=== PATIENT | female | born 1960 | race Native Hawaiian/Other Pacific Islander ===

== ENCOUNTER → 2017-07-18 | Outpatient (CLI) | payer SELFPAY ==
[2017-07-18 10:43] LABS: HCT 42.8 % (34.0-46.0); HGB 15.1 gm/dL (11.4-16.0); MCH 29.2 pg (25.0-35.0); MCHC 35.2 g/dL (31.0-37.0); Mean Platelet Volume 7.7; Platelet Count 221 k/uL (150-450); RBC 5.15 m/uL (3.80-5.40); RDW 12.6 % (11.5-15.5)
[2017-07-18 11:02] LABS: ALT 36 U/L (9-52); AST 31 U/L (14-36); Albumin 4.2 g/dL (3.5-5.0); Alkaline Phosphatase 140 U/L (38-126); Anion Gap 13 mmol/L; Blood Urea Nitrogen 16 mg/dL (7-17); Calcium 9.6 mg/dL (8.4-10.2); Carbon Dioxide 28 mmol/L (22-30); Chloride 103 mmol/L (98-107); Cholesterol 227 mg/dL (<200); Glucose 127 mg/dL (74-99); HDL Cholesterol 45 mg/dL (40-60); LDL Cholesterol,Calculated 110 mg/dL (0-99); Potassium 4.3 mmol/L (3.5-5.1); Sodium 144 mmol/L (137-145); Total Bilirubin 0.5 mg/dL (0.2-1.3); Total Protein 7.4 g/dL (6.3-8.2); Triglycerides 359 mg/dL (<150)
[2017-07-18 11:14] LABS: T4, Free (Free Thyroxine) 0.78 ng/dL (0.78-2.19)
[2017-07-18 18:32] LABS: Hemoglobin A1C 5.9 % (4.0-6.0)
[2017-07-19 20:39] LABS: Hepatitis A Antibody IgM Non-Reactive (Non-Reactive); Hepatitis B Core IgM Non-Reactive (Non-Reactive)
== END | disposition home or self-care (01) ==
LOC: LABWHC1 10:13
PROVIDERS: ATTEND Family Medicine
DX: E78.5 Hyperlipidemia, unspecified (principal); I10 Essential (primary) hypertension; R73.9 Hyperglycemia, unspecified; R94.5 Abnormal results of liver function studies
CPT/HCPCS: 36415; 80053; 80061; 80074; 82977; 83036; 84439; 84443; 85027

== ENCOUNTER 2018-04-25 20:00 | Emergency (ER) | payer OTHER ==
[2018-04-25 20:07] VITALS: TEMP 97.8
--- NOTE | 2018-04-25 20:52 | ED ---
General Adult HPI - General Chief complaint: Fall Stated complaint: slip & fall on ice Time Seen by Provider: 04/25/18 20:13 Source: patient, RN notes reviewed Mode of arrival: ambulatory Limitations: no limitations - History of Present Illness Initial comments: 57-year-old female without any significant past medical history presents to the emergency department for a chief complaint of fall occurring one day ago. She states she slipped on ice. Patient is complaining of left shoulder and left hip pain at this time. She states she has been ambulating and did walk into the emergency department rather than use a wheelchair. She states she has difficulty lifting her left shoulder due to the pain. She denies hitting her head or loss of consciousness.Patient has no other complaints at this time including shortness of breath, chest pain, abdominal pain, nausea or vomiting, headache, or visual changes. - Related Data Previous Rx's Medication Instructions Recorded Cephalexin [Keflex] 500 mg PO Q6HR #20 cap 10/02/14 Ibuprofen [Motrin] 600 mg PO Q6HR PRN #20 tab 10/02/14 Allergies Allergy/AdvReac Type Severity Reaction Status Date / Time No Known Allergies Allergy Verified 10/02/14 11:40 Review of Systems ROS Statement: Those systems with pertinent positive or pertinent negative responses have been documented in the HPI. ROS Other: All systems not noted in ROS Statement are negative. Past Medical History Past Medical History: No Reported History History of Any Multi-Drug Resistant Organisms: None Reported Past Surgical History: Back Surgery, Cholecystectomy, Tubal Ligation Past Psychological History: No Psychological Hx Reported Smoking Status: Current every day smoker Past Alcohol Use History: Occasional Past Drug Use History: None Reported General Exam - General Exam Comments Initial Comments: Left upper extremity: Patient has tenderness noted of the left shoulder. No tenderness noted to the elbow or wrist. Minimal tenderness noted to the palmar aspect of the left hand without ecchymosis or edema. Patient is able to flex left shoulder about 45 and abduct about 45. Neurovascular intact, capillary refill less than 2 seconds and radial pulse 2+. No ecchymosis or abrasions noted. Left lower extremity: Tenderness noted to the left hip. Patient is ambulatory. Neurovascular intact in the left lower extremity. DP pulse 2+, capillary refill less than 2 seconds Full range of motion of the left hip. Limitations: no limitations General appearance: alert, in no apparent distress Head exam: Present: atraumatic, normocephalic, normal inspection Eye exam: Present: normal appearance, PERRL, EOMI. Absent: scleral icterus, conjunctival injection, periorbital swelling ENT exam: Present: normal exam, mucous membranes moist Neck exam: Present: normal inspection, full ROM. Absent: tenderness, meningismus, lymphadenopathy Respiratory exam: Present: normal lung sounds bilaterally. Absent: respiratory distress, wheezes, rales, rhonchi, stridor Cardiovascular Exam: Present: regular rate, normal rhythm, normal heart sounds. Absent: systolic murmur, diastolic murmur, rubs, gallop, clicks Back exam: Absent: vertebral tenderness (no thoracic or lumbar spine tenderness) Neurological exam: Present: alert, oriented X3, CN II-XII intact Psychiatric exam: Present: normal affect, normal mood Course Vital Signs 04/25/18 20:03 Temperature 97.8 F Pulse Rate 91 Respiratory 18 Rate Blood Pressure 157/90 O2 Sat by Pulse 97 Oximetry Medical Decision Making - Medical Decision Making 57-year-old female presents after slipping on ice for left shoulder and hip pain. On exam patient does have full range motion of the left hip and is ambulatory. She does have some tenderness noted of the left hip. No lumbar spine tenderness. No numbness of the groin her buttock, no bladder or bowel changes. Full strength in lower extremities bilaterally. Patient walked into the emergency department without difficulty. No ecchymosis or edema noted of the left hip. Patient also complains of left shoulder pain. She does have some limited range of motion of the left shoulder. Neurovascular intact in left upper extremity. X-ray of both the left shoulder and left hip were negative. On reevaluation patient now states pain and have his extending into her low back. I recommended CAT scan of lumbar spine to rule out any lumbar fracture. However patient is refusing this. She states she does not think it is fractured and does not want to go through any additional testing. Patient is aware of the risks of refusing this test. Sling for shoulder will not be given as this could be due to frozen shoulder syndrome. Discussed with patient that she should follow up with orthopedics for the shoulder as there are many ligaments in the shoulder that could be injured. Discussed that if symptoms of pain in the left shoulder and hip continue she may need to follow up with orthopedics for repeat x-rays. Discussed taking Motrin or Tylenol for pain and returning if she has worsening symptoms which she agrees with. Disposition Clinical Impression: Shoulder pain, Hip pain Disposition: HOME SELF-CARE Condition: Good Instructions: Shoulder Pain (ED), Hip Pain (ED) Additional Instructions: Please take Motrin or Tylenol for pain. Please do range of motion exercises of the left shoulder. Follow-up with orthopedics in one to 2 days for shoulder pain. Return to the emergency department if you have worsening symptoms or symptoms that are not resolving. Is patient prescribed a controlled substance at d/c from ED?: No Referrals: Fernie Grady DO [Primary Care Provider] - 1-2 days Caleb Porter DO [Doctor of Osteopathic Medicine] - 1-2 days Time of Disposition: 21:33
--- NOTE | 2018-04-25 21:06 | XR ---
EXAMINATION TYPE: XR shoulder complete LT DATE OF EXAM: 04/25/2018 COMPARISON: NONE HISTORY: Shoulder pain TECHNIQUE: 3 views FINDINGS: I see no fracture nor dislocation. Joint spaces are normal. There are no pathologic calcifi cations. IMPRESSION: Negative left shoulder exam.
--- NOTE | 2018-04-25 21:08 | XR ---
EXAMINATION TYPE: XR Hip Complete LT DATE OF EXAM: 04/25/2018 COMPARISON: NONE HISTORY: Pain TECHNIQUE: 2 views FINDINGS: I see no fracture nor dislocation. Hip joint space is normal. There is no sign of hip dyspl shweta. IMPRESSION: Negative left hip exam.
[2018-04-25 21:48] VITALS: BP 149/90; PULSE 69; RESP 17
== END 2018-04-25 21:45 | disposition home or self-care (01) ==
LOC: EC 20:00
DX: M25.512 Pain in left shoulder (principal); M25.552 Pain in left hip; M54.5 Low back pain; F17.200 Nicotine dependence, unspecified, uncomplicated; Z98.890 Other specified postprocedural states; W00.0XXA Fall on same level due to ice and snow, initial encounter; Y92.89 Other specified places as the place of occurrence of the external cause
CPT/HCPCS: 73502; 99283

== ENCOUNTER → 2018-05-25 | Outpatient (CLI) | payer SELFPAY ==
--- NOTE | 2018-05-25 14:55 | XR ---
EXAMINATION TYPE: XR wrist complete LT DATE OF EXAM: 05/25/2018 COMPARISON: 11/25/2009 HISTORY: Fall, pain TECHNIQUE: 4 view left wrist FINDINGS: No acute fractures are evident. Mild soft tissue swelling dorsally may be present. Joint sp aces are preserved. IMPRESSION: 1. No acute osseous abnormality left wrist
--- NOTE | 2018-05-25 14:57 | XR ---
EXAMINATION TYPE: XR knee complete LT DATE OF EXAM: 05/25/2018 COMPARISON: None HISTORY: Fall, pain TECHNIQUE: Three-view left knee supplemented with upright AP and lateral views FINDINGS: Small joint effusion is not excluded. Joint spaces are preserved. Joint spaces appear prese rved between standing and supine views. IMPRESSION: 1. There may be a small joint effusion present. 2. Spaces appear preserved. 3. No acute osseous abnormality.
== END | disposition home or self-care (01) ==
LOC: RADXRMAIN 13:58
PROVIDERS: ATTEND Family Medicine
DX: M25.532 Pain in left wrist (principal); M25.562 Pain in left knee

== ENCOUNTER → 2018-08-09 | Outpatient (CLI) | payer SELFPAY ==
--- NOTE | 2018-08-09 17:02 | XR ---
EXAMINATION TYPE: XR elbow complete RT DATE OF EXAM: 08/09/2018 CLINICAL HISTORY: Right elbow pain TECHNIQUE: Frontal, lateral and oblique images of the right elbow are obtained. COMPARISON: None FINDINGS: There is no acute fracture/dislocation evident in the right elbow. No abnormal fat pad si gns are seen. The overlying soft tissue appears unremarkable. Follow-up exams can be performed 7-10 days if there is been acute trauma for continued pain. IMPRESSION: There is no acute fracture or dislocation in the right elbow.
== END | disposition home or self-care (01) ==
LOC: RADXRMAIN 08:05
PROVIDERS: ATTEND Family Medicine
DX: M25.521 Pain in right elbow (principal)